=== PATIENT | female | born 1930 | race Caucasian/White ===

== ENCOUNTER → 2016-05-26 | Outpatient (CLI) | payer OTHER ==
[~2016-05-26] MED LIST: ASPCH81 PO; ATEN50TA8 PO; BCTCR/30 EXT; CHOL1TAB42 PO; CLIN300C2 PO; FLUO0.0566 TOP; HYDR-4956; NYSCR30 EXT; OMEP20CA9 PO; PSYL0.524; SIMV20TA2 PO; SPIR25TA PO
[2016-05-26 14:40] LABS: BASO % 0.2 %; BASO ABS # 0.01 K/uL (0-0.2); COMPLETE YES; EOS % 1.6 %; IG% 0.2 %; LYMPH % 38.8 %; LYMPH ABS # 1.95 K/uL (1.2-3.4); MEAN CELL VOLUME 85.7 fL (80-100); MEAN CORPUSCULAR HEMOGLOBIN 29.1 pg (25-34); MEAN PLATELET VOLUME 10.4 fL (7.4-10.4); MONO % 11.6 %; NEUT % 47.6 %; PLATELET COUNT 221 K/uL (130-400); RED BLOOD COUNT 4.67 M/uL (4.2-5.4); WHITE BLOOD COUNT 5.02 K/uL (4.8-10.8)
[2016-05-26 15:10] LABS: ALT/SGPT 18 U/L (12-78); AST/SGOT 15 U/L (15-37); BLOOD UREA NITROGEN 22 mg/dl (7-18); BUN/CREATININE RATIO 22.3 (10-20); CALCIUM 9.1 mg/dl (8.5-10.1); CARBON DIOXIDE 30 mmol/L (21-32); CHLORIDE 107 mmol/L (98-107); GLUCOSE 87 mg/dl (70-99); POTASSIUM 4.1 mmol/L (3.5-5.1); SODIUM 143 mmol/L (136-145)
[2016-05-26 15:21] LABS: ALB/GLOB RATIO 1.1 (0.9-2); ALKALINE PHOSPHATASE 61 U/L (45-117); CHOLESTEROL 214 mg/dl (0-200); CHOLESTEROL/HDL RATIO 4.7; HDL CHOLESTEROL 46 mg/dl; LDL CHOLESTEROL CALCULATED 114 mg/dl; TRIGLYCERIDES 269 mg/dl (0-150); VERY LOW DENSITY LIPOPROT CALC 54 mg/dl
== END | disposition home or self-care (01) ==
LOC: C.LABBC 12:10
PROVIDERS: ATTEND Physician Assistant Medical
DX: I10 Essential (primary) hypertension (principal); K21.9 Gastro-esophageal reflux disease without esophagitis; E55.9 Vitamin D deficiency, unspecified; I65.29 Occlusion and stenosis of unspecified carotid artery; N18.9 Chronic kidney disease, unspecified; L72.9 Follicular cyst of the skin and subcutaneous tissue, unspecified

== ENCOUNTER → 2016-08-05 | Outpatient (CLI) | payer OTHER | END | disposition home or self-care (01) | LOC: C.LABSPEC 11:18 | PROVIDERS: ATTEND Physician Assistant Medical | DX: L03.119 Cellulitis of unspecified part of limb (principal) ==

== ENCOUNTER → 2016-11-24 | Outpatient (CLI) | payer OTHER | END | disposition home or self-care (01) | LOC: C.LABSPEC 13:49 | PROVIDERS: ATTEND Physician Assistant Medical | DX: L72.9 Follicular cyst of the skin and subcutaneous tissue, unspecified (principal) ==

== ENCOUNTER → 2017-01-27 | Outpatient (CLI) | payer OTHER ==
[2017-01-27 17:39] LABS: BLOOD UREA NITROGEN 24 mg/dl (7-18); BUN/CREATININE RATIO 19.6 (10-20); CALCIUM 8.6 mg/dl (8.5-10.1); CARBON DIOXIDE 28 mmol/L (21-32); CHLORIDE 105 mmol/L (98-107); CREATININE 1.23 mg/dl (0.60-1.20); GLUCOSE 112 mg/dl (70-99); SODIUM 138 mmol/L (136-145)
== END | disposition home or self-care (01) ==
LOC: C.LABBC 14:36
PROVIDERS: ATTEND Internal Medicine Geriatric Medicine
DX: I10 Essential (primary) hypertension (principal)

== ENCOUNTER → 2017-02-17 | Outpatient (CLI) | payer OTHER ==
[~2017-02-17] MED LIST changes: +AMLO2.5T PO; +ASPI81TA28 PO; +ATOR-54 PO; +CHOL1000 PO; +CHOL2000 PO; +LOSA1TAB38 PO; +MULT-1092 PO; -PSYL0.524; +PSYL0.524 PO
--- NOTE | 2017-02-17 10:12 | DIAGNOSTIC IMAGING REPORT ---
L RIBS UNILATERAL WITH PA CHEST CLINICAL HISTORY: R07.81 Rib pain on left [id number] COMPARISON STUDY: None FINDINGS: Negative left ribs. Negative chest. IMPRESSION: Negative study The above report was generated using voice recognition software. It may contain grammatical, syntax or spelling errors. Electronically signed by: Hira Sweeney M.D. 02/17/2017 10:11 AM Dictated Date/Time: 02/17/2017 10:08 AM
== END | disposition home or self-care (01) ==
LOC: C.RADBC 09:38
PROVIDERS: ATTEND Physician Assistant Medical
DX: R07.81 Pleurodynia (principal)

== ENCOUNTER 2017-05-03 01:37 | Emergency (ER) | payer OTHER ==
[~2017-05-03] VITALS: Ht 152.4 cm; Wt 68.1 kg
[~2017-05-03 01:37] MED LIST changes: -AMLO2.5T PO; -ASPI81TA28 PO; -ATOR-54 PO; -CHOL1000 PO; -CHOL2000 PO; -LOSA1TAB38 PO; -MULT-1092 PO
[2017-05-03 01:42] VITALS: Ht 152.4 cm; Wt 68.1 kg
--- NOTE | 2017-05-03 01:53 | EMERGENCY ROOM VISIT NOTE ---
History Report prepared by Erin: Denzel Olguin Under the Supervision of: Dr. Norma Gross D.O. First contact with patient: 01:44 Chief Complaint: FLU LIKE SX Stated Complaint: PAIN ALL OVER,NAUSEA History of Present Illness The patient is an 87 year old female who presents to the Emergency Room with complaints of a constant fever beginning at 2200 today. The patient states that she also began to feel dehydrated today. She also complains of chills, neck pain , body aches, nausea, dizziness, and congestion. She notes that her neck pain has since resolved. She reports that she had felt fine earlier today. She denies any cough, diarrhea, abdominal pain, vomiting, melena, CP, SOB, urinary symptoms, and sore throat. The patient states that she does not have a history of any heart problems but has had a history of occasional sinus infections. She notes that her current symptoms do not feel similar to when she has a sinus infection. She reports that she did not receive a flu shot this year. Pt anxious to go home bc of her husbands upcoming medical procedures. Patient very active, lives at home with her . Source of History: patient Onset: 2200 today Position: other (global) Quality: other (fever) Associated Symptoms: + chills, + nausea, No sorethroat, No cough, No vomiting, No abdominal pain, No diarrhea Note: The patient also complains of neck pain, body aches, dizziness, and congestion. Review of Systems See HPI for pertinent positives & negatives. A total of 10 systems reviewed and were otherwise negative. Past Medical & Surgical Medical Problems: (1) Acute gastritis without mention of hemorrhage (2) Atherosclerosis (3) Cellulitis, unspecified (4) Chronic sinusitis, unspecified (5) Hyperlipidemia (6) Hypertension (7) Osteoporosis (8) Sinus infection Surgical Problems: (1) History of appendectomy (2) History of hysterectomy Family History Hypertension Social History Smoking Status: Never Smoker Marital Status: Housing Status: lives with family Occupation Status: retired Current/Historical Medications Scheduled Amlodipine (Norvasc), 2.5 MG PO DAILY Aspirin (Aspirin Ec), 81 MG PO DAILY Atenolol (Tenormin), 50 MG PO QAM Atorvastatin (Lipitor), 20 MG PO QPM Cholecalciferol (Vitamin D3), 1 TAB PO DAILY Cholecalciferol (Vitamin D3), 1 CAP PO DAILY Losartan Potassium (Cozaar), 100 MG PO DAILY Multiple Vitamins W/ Minerals (Centrum Silver 50+Women), 1 TAB PO DAILY Omeprazole (Prilosec), 20 MG PO QAM Psyllium (Metamucil), 1 CAP PO DAILY Spironolactone (Aldactone), 25 MG PO QAM Allergies Coded Allergies: Sulfa Drugs (Verified Allergy, Severe, 05/03/17) HIVES Sulfamethoxazole (Verified Allergy, Severe, 05/03/17) Amlodipine (Verified Allergy, Unknown, UNKNOWN, 12/12/15) Amoxicillin (Verified Allergy, Unknown, UNKNOWN, 05/03/17) Clavulanic Acid (Verified Allergy, Unknown, UNKNOWN, 05/03/17) Lisinopril (Verified Allergy, Unknown, ? REMEMBER, 05/03/17) Loratadine (Verified Allergy, Unknown, UNKNOWN, 05/03/17) Naproxen (Verified Allergy, Unknown, UNKNOWN, 05/03/17) Olmesartan (Verified Allergy, Unknown, ADVERSE RX ?, 05/03/17) Oxycodone (Verified Allergy, Unknown, ADVERSE RX, 05/03/17) Pseudoephedrine (Verified Allergy, Unknown, UNKNOWN, 05/03/17) Physical Exam Vital Signs Date Time Temp Pulse Resp B/P (MAP) Pulse Ox O2 Delivery O2 Flow Rate FiO2 05/03/17 07:16 37.2 97 23 148/73 94 05/03/17 06:17 97 94 05/03/17 06:11 89 23 05/03/17 06:01 151/83 05/03/17 05:41 92 24 93 05/03/17 05:31 143/62 05/03/17 05:01 151/103 05/03/17 04:41 99 26 91 05/03/17 04:31 127/55 05/03/17 04:28 128/76 05/03/17 04:25 37.5 05/03/17 04:11 100 23 92 05/03/17 04:06 101 24 92 05/03/17 04:01 128/76 05/03/17 03:36 104 26 93 05/03/17 03:31 165/73 05/03/17 03:07 111 29 95 05/03/17 03:01 153/72 05/03/17 02:37 114 30 175/65 94 05/03/17 02:25 118 05/03/17 01:42 38.2 119 18 183/80 91 Room Air Physical Exam GENERAL: alert, well appearing, well nourished, no distress, non-toxic EYE EXAM: normal conjunctiva, PERRL and EOM's grossly intact OROPHARYNX: no exudate, no erythema, lips, buccal mucosa, and tongue normal and mucous membranes are moist NECK: supple, no nuchal rigidity, no adenopathy, non-tender LUNGS: Clear to auscultation. Normal chest wall mechanics, no w/r/r HEART: no murmurs, S1 normal and S2 normal ABDOMEN: abdomen soft, non-tender, normo-active bowel sounds, no masses, no rebound or guarding. BACK: Back is symmetrical on inspection and there is no deformity, no midline tenderness, no CVA tenderness. SKIN: no rashes and no bruising, warm to touch UPPER EXTREMITIES: upper extremities are grossly normal. LOWER EXTREMITIES: No pitting edema. NEURO EXAM: Normal sensorium, cranial nerves II-XII grossly intact, normal speech, no gross weakness of arms, no gross weakness of legs Medical Decision & Procedures ER Provider Diagnostic Interpretation: Radiology results have been interpreted and reviewed by me. CHEST X-RAY: Patient rotated. Mild cardiomegaly. Questionable right-sided infiltrate. No effusions. KUB: No SBO. No free air. Radiology results have been interpreted by the radiologist and reviewed by me. CT CHEST Without Contrast: Evaluation of lung parenchyma limited by motion artifact, but no evidence of pneumonia. Scattered subsegmental atelectasis/scarring. Mild right middle lobe nodularity measuring less than 4mm. Extensive atherosclerotic calcifications. Coronary artery calcifications. Small sliding hiatal hernia. Small fat-containing left Bochdalek hernia. Exaggerated thoracic kyphosis and mild dextroscoliosis with chronic appearing mild compression deformity of T7 and T9. Radiologist: Marlon Silver MD. Laboratory Results 05/03/17 02:48 Red Blood Count 3.66, Mean Corpuscular Volume 91.0, Mean Corpuscular Hemoglobin 30.9, Mean Corpuscular Hemoglobin Concent 33.9, Mean Platelet Volume 10.0, Neutrophils (%) (Auto) 82.4, Lymphocytes (%) (Auto) 7.9, Monocytes (%) (Auto) 9.0, Eosinophils (%) (Auto) 0.2, Basophils (%) (Auto) 0.1, Neutrophils # (Auto) 8.63, Lymphocytes # (Auto) 0.83, Monocytes # (Auto) 0.94, Eosinophils # (Auto) 0.02, Basophils # (Auto) 0.01 05/03/17 02:30 Test 05/03/17 02:30 05/03/17 02:48 05/03/17 03:01 Urine Color YELLOW Urine Appearance CLEAR (CLEAR) Urine pH 5.0 (4.5-7.5) Urine Specific [place] 1.017 (1.000-1.030) Urine Protein NEG (NEG) Urine Glucose (UA) NEG (NEG) Urine Ketones NEG (NEG) Urine Occult Blood NEG (NEG) Urine Nitrite NEG (NEG) Urine Bilirubin NEG (NEG) Urine Urobilinogen NEG (NEG) Urine Leukocyte Esterase NEG (NEG) Anion Gap 10.0 mmol/L (3-11) Est Creatinine Clear Calc Drug Dose 24.1 ml/min Estimated GFR () 39.9 Estimated GFR (Non- 34.4 BUN/Creatinine Ratio 19.8 (10-20) Calcium Level 8.8 mg/dl (8.5-10.1) Total Bilirubin 1.1 mg/dl (0.2-1) Aspartate Amino Transf (AST/SGOT) 43 U/L (15-37) Alanine Aminotransferase (ALT/SGPT) 33 U/L (12-78) Alkaline Phosphatase 92 U/L (45-117) Troponin I < 0.015 ng/ml (0-0.045) Pro-B-Type Natriuretic Peptide 1459 pg/ml (0-1800) Total Protein 7.5 gm/dl (6.4-8.2) Albumin 3.8 gm/dl (3.4-5.0) Globulin 3.7 gm/dl (2.5-4.0) Albumin/Globulin Ratio 1.0 (0.9-2) Lipase 119 U/L (73-393) Thyroid Stimulating Hormone (TSH) 0.673 uIu/ml (0.300-4.500) Chemistry Specimen Hemolysis Influenza Type A Antigen Neg for Influ A (NEG) Influenza Type B Antigen Neg for Influ B (NEG) White Blood Count 10.47 K/uL (4.8-10.8) Red Blood Count 3.66 M/uL (4.2-5.4) Hemoglobin 11.3 g/dL (12.0-16.0) Hematocrit 33.3 % (37-47) Mean Corpuscular Volume 91.0 fL (80-100) Mean Corpuscular Hemoglobin 30.9 pg (25-34) Mean Corpuscular Hemoglobin Concent 33.9 g/dl (32-36) Platelet Count 162 K/uL (130-400) Mean Platelet Volume 10.0 fL (7.4-10.4) Neutrophils (%) (Auto) 82.4 % Lymphocytes (%) (Auto) 7.9 % Monocytes (%) (Auto) 9.0 % Eosinophils (%) (Auto) 0.2 % Basophils (%) (Auto) 0.1 % Neutrophils # (Auto) 8.63 K/uL (1.4-6.5) Lymphocytes # (Auto) 0.83 K/uL (1.2-3.4) Monocytes # (Auto) 0.94 K/uL (0.11-0.59) Eosinophils # (Auto) 0.02 K/uL (0-0.5) Basophils # (Auto) 0.01 K/uL (0-0.2) RDW Standard Deviation 47.7 fL (36.4-46.3) RDW Coefficient of Variation 14.4 % (11.5-14.5) Immature Granulocyte % (Auto) 0.4 % Immature Granulocyte # (Auto) 0.04 K/uL (0.00-0.02) Prothrombin Time 10.7 SECONDS (9.0-12.0) Prothromb Time International Ratio 1.0 (0.9-1.1) Bedside Lactic Acid Venous 1.06 mmol/L (0.90-1.70) Laboratory results per my review. Medications Administered Medications (Trade) Dose Ordered Sig/Jean Route Start Time Stop Time Status Last Admin Dose Admin Sodium Chloride 1,000 ml @ 999 mls/hr Q1H1M STAT IV 05/03/17 01:54 05/03/17 02:54 DC 05/03/17 02:40 999 MLS/HR Acetaminophen (Tylenol Tab) 650 mg NOW STAT PO 3/19/18 03:07 05/03/17 03:08 DC 05/03/17 03:29 650 MG Sodium Chloride 1,000 ml @ 999 mls/hr Q1H1M STAT IV 05/03/17 03:10 05/03/17 04:10 DC 05/03/17 03:28 999 MLS/HR ECG Per My Interpretation Indication: weakness Rate (beats per minute): 114 Rhythm: sinus tachycardia Findings: ST depression (v5 and v6), T-wave inversion (lead 1 and AVL), other ( Normal axis, normal intervals) ED Course 1258: The patient was evaluated in room A10. A complete history and physical exam was performed. 0154: Sodium Chloride 1000 ml @ 999 mls/hr IV 0307: Acetaminophen 650mg PO 0310: Sodium Chloride 1000 ml @ 999 mls/hr IV 0414: I reevaluated and updated the patient. 0557: I rechecked the patient. A road test will be done on the patient. 0710: Upon reevaluation, the patient is feeling better. I discussed the findings and the treatment plan with the patient. She verbalizes agreement and understanding. The patient was discharged home. Medical Decision Differential diagnosis: Etiologies such as viral syndrome, otitis, pharyngitis, pneumonia, influenza, meningitis, urinary tract infection, sepsis, bacteremia, as well as others were entertained. Patient well-appearing here despite complaints. Labs and imaging reassuring on the patient. Vital signs reassuring and temperature improved. Patient able to emulate with a steady gait without hypoxia. Patient reported feeling better following administration of IV fluids and Tylenol. Discussed with patient concern for fever advanced age as well as comorbidities. She was very insistent on going home as her is scheduled to have other medical testing done later this week. With reassuring labs and patient reporting feeling improved, discussed with her no evidence for bacteremia/sepsis, however these presentations can be delayed in the elderly. No other acute infectious source found. It is possible patient has a viral etiology of her fever. Patient well-appearing here, tachycardia likely secondary to fever and dehydration and improved with treatment of both. Patient otherwise with no focal complaints or evolving symptoms. Patient was observed for several hours as a precaution and had no change or worsening condition, reported that she felt improved and vital signs were improved also. Blood cultures were drawn and sent and patient was made aware that these will take 48 hours to resolve and if they are normal she will receive a phone call. Patient was advised given that she declined additional observation in the hospital that she should follow-up as soon as possible with her family doctor for recheck, particularly prior to traveling for her 's medical procedures. All questions were answered at bedside, discussed symptoms to watch and return for, treatment of fever, adequate hydration, she verbalized understanding and was agreeable to plan. Medication Reconcilliation Current Medication List: was personally reviewed by me Blood Pressure Screening Patient's blood pressure: Elevated blood pressure Blood pressure disposition: Referred to PCP Impression Primary Impression: Influenza-like symptoms Additional Impression: Fever Scribe Attestation The scribe's documentation has been prepared under my direction and personally reviewed by me in its entirety. I confirm that the note above accurately reflects all work, treatment, procedures, and medical decision making performed by me. Departure Information Dispostion Home / Self-Care Referrals Seth Bustamante M.D. (PCP) Forms HOME CARE DOCUMENTATION FORM, IMPORTANT VISIT INFORMATION Patient Instructions My [facility] Additional Instructions Please call and follow-up with your family doctor. Please continue your regular medications as prescribed. You may use Tylenol and ibuprofen as needed for fevers and pain. Please make sure you are staying well-hydrated and drinking plenty of water. If you have any worsening aches, persistent fevers, develop a cough, trouble breathing, diarrhea, dizziness, chest pain, rashes or sores, you have any other new concerns, please return the emergency room. Blood cultures were sent as a precaution, these take 48 hours to result. If they are abnormal you will receive a phone call. Problem Qualifiers Additional Impression: Fever Fever type: unspecified Qualified Codes: R50.9 - Fever, unspecified
[2017-05-03] MEDS ORDERED: SODIUM CHLORIDE 0.9% 1000ML 1,000 ML IV STA ×2 (01:54→03:10)
[2017-05-03] MEDS ORDERED: ATOR-54 PO (02:21)
[2017-05-03] MEDS ORDERED: AMLO2.5T PO (02:22)
[2017-05-03] MEDS ORDERED: LOSA1TAB38 PO (02:22)
[2017-05-03] MEDS ORDERED: CHOL1000 PO (02:23)
[2017-05-03] MEDS ORDERED: ASPI81TA28 PO (02:23)
[2017-05-03] MEDS ORDERED: MULT-1092 PO (02:23)
[2017-05-03] MEDS ORDERED: CHOL2000 PO (02:23)
[2017-05-03 03:07] LABS: ALBUMIN 3.8 gm/dl (3.4-5.0); ALT/SGPT 33 U/L (12-78); AST/SGOT 43 U/L (15-37); BLOOD UREA NITROGEN 27 mg/dl (7-18); CALCIUM 8.8 mg/dl (8.5-10.1); CARBON DIOXIDE 22 mmol/L (21-32); CREATININE 1.36 mg/dl (0.60-1.20); GLUCOSE 119 mg/dl (70-99); LIPASE 119 U/L (73-393); POTASSIUM 4.7 mmol/L (3.5-5.1); SODIUM 137 mmol/L (136-145)
[2017-05-03] MEDS ORDERED: ACETAMINOPHEN 325 MG TAB PO STA (03:07)
[2017-05-03 03:19] LABS: ALKALINE PHOSPHATASE 92 U/L (45-117); INFLUENZA B ANTIGEN Neg for Influ B (NEG); TOTAL PROTEIN 7.5 gm/dl (6.4-8.2)
[2017-05-03 03:19] LABS: BASO % 0.1 %; BASO ABS # 0.01 K/uL (0-0.2); EOS % 0.2 %; EOS ABS # 0.02 K/uL (0-0.5); HEMATOCRIT 33.3 % (37-47); HEMOGLOBIN 11.3 g/dL (12.0-16.0); IG# 0.04 K/uL (0.00-0.02); LYMPH % 7.9 %; LYMPH ABS # 0.83 K/uL (1.2-3.4); MEAN CORPUSCULAR HEMOGLOBIN 30.9 pg (25-34); MEAN CORPUSCULAR HGB CONC 33.9 g/dl (32-36); MONO ABS # 0.94 K/uL (0.11-0.59); NEUT % 82.4 %; NEUT ABS # 8.63 K/uL (1.4-6.5); PLATELET COUNT 162 K/uL (130-400); RED CELL DISTRIBUTION WIDTH CV 14.4 % (11.5-14.5); RED CELL DISTRIBUTION WIDTH SD 47.7 fL (36.4-46.3); WHITE BLOOD COUNT 10.47 K/uL (4.8-10.8)
[2017-05-03 07:16] VITALS: BP 148/73; PULSE 97; TEMP 37.2; O2SAT 94
--- NOTE | 2017-05-03 07:17 | DIAGNOSTIC IMAGING REPORT ---
CHEST ONE VIEW PORTABLE CLINICAL HISTORY: 87 years-old Female presenting with fever. TECHNIQUE: Portable upright AP view of the chest was obtained. COMPARISON: 01/20/2015. FINDINGS: The patient is JOHNSON rotated. Atherosclerosis of aortic arch. Cardiac silhouette enlarged. Heterogeneity of lung parenchyma with relative radiolucency in the upper lobes. Mild hyperinflation. Bibasilar linear opacities. Apparent added density at the right lung base likely due to overlapping soft tissues and JOHNSON positioning. No large pleural effusion or pneumothorax. Exaggerated thoracic kyphosis with possible osteopenia. Upper abdomen normal. IMPRESSION: 1. Bibasilar scarring. No focal consolidation to suggest pneumonia. 2. Cardiomegaly. No evidence of pulmonary edema. Electronically signed by: Suhas Garza M.D. 05/03/2017 7:16 AM Dictated Date/Time: 05/03/2017 7:13 AM
--- NOTE | 2017-05-03 07:19 | DIAGNOSTIC IMAGING REPORT ---
KUB CLINICAL HISTORY: 87 years-old Female presenting with fever, nausea. TECHNIQUE: Single supine view of the abdomen was obtained. COMPARISON: CT from 2011. FINDINGS: Nonobstructive bowel gas pattern. No gross pneumoperitoneum. Top normal size of the splenic shadow, which may be due to magnification. Allowing for bowel gas and stool, redemonstration of the parenchymal calcification in the left kidney. No convincing evidence of renal or ureteral calculi. Splenic arterial calcification noted as well as dense calcified atherosclerotic plaque along the aorta. Degenerative changes of the spine. Lung bases clear. IMPRESSION: 1. No acute intra-abdominal pathology. Electronically signed by: Suhas Garza M.D. 05/03/2017 7:18 AM Dictated Date/Time: 05/03/2017 7:16 AM
--- NOTE | 2017-05-03 08:54 | DIAGNOSTIC IMAGING REPORT ---
(CHEST) THORAX WITHOUT CLINICAL HISTORY: 87 years-old Female presenting with ?right sided pneumonia. TECHNIQUE: Multidetector CT imaging of the chest was performed without the use of intravenous contrast. IV contrast: None. A dose lowering technique was used consistent with the principles of ALARA (as low as reasonably achievable). COMPARISON: Chest x-ray from earlier the same day. CT DOSE (mGy.cm): The estimated cumulative dose is 230.48 mGy.cm. FINDINGS: [employer] Intern topogram: Cardiomegaly. On soft tissue windows, multinodular thyroid. Prominent right intramammary lymph node noted in the right breast. No axillary, supraclavicular, or mediastinal lymphadenopathy. Evaluation of the celio limited without intravenous contrast. Severe atherosclerotic plaque throughout the aorta. Slight contour irregularity immediately proximal to the aortic hiatus could suggest a short segment dissection or penetrating ulcer. No surrounding inflammatory change or hematoma. Coronary artery and aortic valve calcification. Normal heart size. No pericardial or pleural effusion. Upper abdomen normal. On lung windows, evaluation degraded by motion artifact. Allowing for this, bandlike opacities primarily in the lower lungs likely atelectasis or scarring. Fat-containing left Bochdalek hernia with adjacent atelectasis. Solid polygonal 3-4 mm nodule in the right middle lobe (series 4 image 169). Additional peripheral polygonal solid 3 mm nodule immediately superior to this (series 4 image 156). Central airways patent allowing for the expiratory phase of respiration. On bone windows, degenerative changes of the spine. Minimal anterior wedging deformity at T5, T7, and T9. Osteopenia. IMPRESSION: 1. No focal infiltrate to suggest pneumonia. 2. Scattered basilar predominant atelectasis or scarring. 3. Two 3-4 mm solid pulmonary nodules in the right middle lobe. Follow-up per [employer]ana Society 2017 recommendations below. 4. Extensive atherosclerosis with possible short segment dissection or penetrating ulcer immediately proximal to the aortic hiatus. 5. Osteopenia with minimal compression deformities at several thoracic levels. Please refer to below summary of Fleischner Society 2017 recommendations for follow-up of incidental CT nodules (Oz Yepez et al. Guidelines for management of incidental pulmonary nodules detected on CT images: From the Fleischner Society 2017. Radiology 2017; 284: 228-243.) SOLID NODULES Single nodule; size < 6 mm * Low risk patients: No routine follow-up * High risk patients: Optional CT at 12 months Single nodule; size 6-8 mm * Low risk patients: CT at 6-12 months, then consider CT at 18-24 months * High risk patients: CT at 6-12 months, then at 18-24 months Single nodule; size > 8 mm * Either low or high risk patients: Considered CT at 3 months, PET/CT, or tissue sampling Multiple nodules; size < 6 mm * Low risk patients: No routine follow up * High risk patients: Optional CT at 12 months Multiple nodules; size 6-8 mm * Low risk patients: CT at 3-6 months, then consider CT at 18-24 months * High risk patients: CT at 3-6 months, then at 18-24 months Multiple nodules; size > 8 mm * Low risk patients: CT at 3-6 months, then consider at 18-24 months * High risk patients: CT at 3-6 months, then at 18-24 months SUBSOLID NODULES Single ground-glass nodule * Nodule size < 6 mm: No routine follow-up * Nodule size > or = 6 mm: CT at 6-12 months to confirm persistence, then CT every 2 years until 5 years Single part-solid nodule * Nodule size < 6 mm: No routine follow-up * Nodules size > or = 6 mm: CT at 3-6 months to confirm persistence. If unchanged and solid component remains < 6 mm, annual CT should be performed for 5 years Multiple nodules * Nodule size < 6 mm: CT at 3-6 months. If stable, consider CT at 2 and 4 years. * Nodules size > or = 6 mm: CT at 3-6 months. Subsequent management based on the most suspicious nodule(s) NOTE: These guidelines apply to incidental nodules. These guidelines do not apply to patients younger than 35 years, immunocompromised patients, or patients with cancer. * Low risk patients: Minimal or absent history of smoking and/or other known risk factors * High risk patients: History of smoking, exposure to other carcinogens, emphysema, fibrosis, upper lobe location, family history of lung cancer, etc. If a nodule up to 8 mm is partly solid or is ground glass, further follow-up is required after 24 months to exclude possible slow growing adenocarcinoma. Electronically signed by: Suhas Garza M.D. 05/03/2017 8:53 AM Dictated Date/Time: 05/03/2017 6:55 AM
== END 2017-05-03 07:17 | disposition home or self-care (01) ==
LOC: C.EDB 01:38
DX: R50.9 Fever, unspecified (principal); E86.0 Dehydration; R11.0 Nausea; R42 Dizziness and giddiness; I10 Essential (primary) hypertension; J32.9 Chronic sinusitis, unspecified; I70.90 Unspecified atherosclerosis; E78.5 Hyperlipidemia, unspecified; M81.0 Age-related osteoporosis without current pathological fracture; Z79.82 Long term (current) use of aspirin; Z90.49 Acquired absence of other specified parts of digestive tract; Z90.710 Acquired absence of both cervix and uterus; Z87.2 Personal history of diseases of the skin and subcutaneous tissue; Z82.49 Family history of ischemic heart disease and other diseases of the circulatory system; Z88.2 Allergy status to sulfonamides; Z88.8 Allergy status to other drugs, medicaments and biological substances; Z88.1 Allergy status to other antibiotic agents; Z88.6 Allergy status to analgesic agent